=== PATIENT | female | born 1940 | race Caucasian/White ===

== ENCOUNTER → 2022-07-28 | Outpatient (REF) | payer OTHER ==
[~2022-07-28] MED LIST: ACET65TA OR; ASPIRIN PO; COUM1TAB18 OR; OSTEO BIFLEX PO; OYST500T PO; Omega 3 PO; SYNT112T PO; TRAM50TA2 OR; VITA400C PO; VITA500T PO; Vitamin B12 PO; Vitamin B6 PO
== END ==
LOC: M LAB REF 10:05
PROVIDERS: ATTEND Physician Assistant
DX: M70.22 Olecranon bursitis, left elbow (principal)